=== PATIENT | male | born 1970 | race Caucasian/White ===

== ENCOUNTER 2023-02-15 17:27 | Emergency (ER) | payer MEDICAID ==
[~2023-02-15] VITALS: Ht 207 cm; Wt 132.7 kg
[2023-02-15 17:37] VITALS: BP 134/83
[2023-02-15] MEDS ORDERED: lurasidone 20mg tablet PO STA (18:18)
[2023-02-15] MEDS ORDERED: LURA80TA2 PO (18:21)
== END 2023-02-15 18:34 | disposition home or self-care (01) ==
LOC: ER 17:28
DX: F31.9 Bipolar disorder, unspecified (principal); Z76.0 Encounter for issue of repeat prescription; Z88.6 Allergy status to analgesic agent; Z79.899 Other long term (current) drug therapy; Z88.5 Allergy status to narcotic agent
CPT/HCPCS: 99281; 99283

== ENCOUNTER 2023-02-28 15:24 | Emergency (ER) | payer MEDICAID ==
[~2023-02-28] VITALS: Ht 175.3 cm; Wt 132.0 kg
[~2023-02-28 15:24] MED LIST: LURA80TA2 PO
[2023-02-28 15:49] VITALS: BP 129/91
[2023-02-28] MEDS ORDERED: BUSP10TA11 PO (15:56)
== END 2023-02-28 16:53 | disposition home or self-care (01) ==
LOC: ER 15:25
DX: F41.9 Anxiety disorder, unspecified (principal); Z76.0 Encounter for issue of repeat prescription
CPT/HCPCS: 99281

== ENCOUNTER 2025-03-19 06:39 | Emergency (ER) | payer MEDICAID ==
[~2025-03-19] VITALS: Ht 175.3 cm; Wt 125.0 kg
[2025-03-19 06:48] VITALS: TEMP 97.6
[2025-03-19 07:44] LABS: BASOPHILS % (AUTO) 0.2 % (0-1); EOSINOPHILS % (AUTO) 0.1 % (0-6); HEMATOCRIT 48.4 % (42.0-52.0); HEMOGLOBIN 17.2 g/dl (14.0-17.9); LYMPHOCYTES # (AUTO) 1.7 X10'3 (1.1-4.8); LYMPHOCYTES % (AUTO) 17.3 % (21-51); MEAN CORPUSCULAR HEMOGLOBIN 31.3 PG (27.0-31.0); MEAN CORPUSCULAR HGB CONC 35.6 g/dL (33.0-36.5); MEAN PLATELET VOLUME 7.2 FL (7.4-10.4); MONOCYTES # (AUTO) 0.7 X10'3 (0-0.9); MONOCYTES % (AUTO) 7.6 % (2-12); NEUTROPHILS # (AUTO) 7.2 X10'3 (1.8-7.7); NEUTROPHILS % (AUTO) 74.8 % (42-75); PLATELET COUNT 215 X10'3 (140-440); RED CELL DISTRIBUTION WIDTH 14.1 % (11.5-14.5); WHITE BLOOD COUNT 9.6 X10'3 (4.5-11.0)
[2025-03-19 08:10] LABS: ALANINE AMINOTRANSFERASE 38 U/L (12-78); ALBUMIN 4.7 G/DL (3.4-5.0); ALBUMIN/GLOBULIN RATIO 1.2 (1.1-1.5); ALKALINE PHOSPHATASE 81 IU/L (46-116); AMYLASE 24 U/L (25-115); ANION GAP 15 (8-16); ASPARTATE AMINO TRANSFERASE 30 U/L (10-37); BILIRUBIN,TOTAL 1.3 MG/DL (0.1-1.0); BLOOD UREA NITROGEN 12 MG/DL (7-18); BUN/CREATININE RATIO 15.2 (10.0-20.0); CALCIUM 9.7 MG/DL (8.5-10.1); CHLORIDE 100 MMOL/L (99-107); CREATININE 0.79 MG/DL (0.60-1.10); GLUCOSE 164 MG/DL (70-104); LIPASE 18 U/L (16-77); POTASSIUM 3.8 MMOL/L (3.5-5.1); SODIUM 138 MMOL/L (135-145); TOTAL CARBON DIOXIDE 23.4 MMOL/L (24-32); TOTAL PROTEIN 8.5 G/DL (6.4-8.2); eCRCL 107 ML/MIN; eGFR > 90 ML/MIN
[2025-03-19 08:28] LABS: BILIRUBIN,URINE NEGATIVE (Neg); CLARITY,URINE CLEAR (Clear); COLOR,URINE YELLOW (Yellow); GLUCOSE, URINE >=1000 mg/dl (Neg); KETONES,URINE TRACE mg/dl (Neg); LEUKOCYTE ESTERASE ,URINE NEGATIVE (Neg); NITRITES, URINE NEGATIVE (Neg); OCCULT BLOOD,URINE NEGATIVE (Neg); PROTEIN,URINE NEGATIVE (Neg); UROBILINOGEN,URINE 0.2 E.U/dL (0.2-1.0)
[2025-03-19 08:30] LABS: UA COLLECTION TYPE CLN CATCH MIDSTREAM
[2025-03-19 08:43] LABS: BACTERIA,URINE FEW /HPF (Neg); MUCUS STRANDS NONE SEEN /LPF (Neg); RBC,URINE 0-2 /HPF (0-2); SQUAMOUS EPITHELIAL CELL,UR NONE SEEN /LPF (FEW); WBC,URINE 0-4 /HPF (0-4)
--- NOTE | 2025-03-19 10:27 | Physician Documentation ---
History of Present Illness Chief Complaint: Abdominal Pain Stated Complaint: ABD PAIN Time Seen by MD: 09:07 OK to notify your PCP?: Yes Primary [facility] Source: patient, RN/, RN notes reviewed, old records Mode of Arrival: POV Exam Limitations: no limitations HPI 54 year old male presents to the emergency department complaining of abdominal pain with an onset of three days and states it happened last week as well. He states that he has been experiencing 6/10 abdominal pain with excessive gas and burping. Additionally he complains of diarrhea stating he has had it three times since arriving to the emergency department. He also complains of frequent urination. Of note patient was just recently diagnosed with diabetes and he does not know his glucose level. Patient denies any other associated symptoms at this time. Patient denies any other alleviating or exacerbating factors Medication Reconciliation Allergies: Coded Allergies: hydromorphone (Verified Allergy, Intermediate, RASH, 03/19/25) acetaminophen (Unverified Allergy, Unknown, 03/19/25) Scheduled Lurasidone HCl (Latuda), 1 TAB PO HS Metronidazole* (Flagyl*), 1 TAB PO Q8H Past Medical History Past Medical History: GERD, *PSYCH*, Anxiety, Bipolar, Depression Past Surgical History: noncontributory, cholecystectomy Alcohol Use: None Lives with: Spouse Lives In: Home Review of Systems All Other Systems at this time: Reviewed and Negative ROS As stated above in the HPI, otherwise all systems are reviewed and negative. Physical Exam Vital Signs: RN Vital Signs have been reviewed: Yes, Temperature: 97.6, Source: Temporal, Heart Rate: 102, Respiratory Rate: 18, BP: 158/92, Pulse Oximetry: 93, Weight: 125.050 Pulse Oximetry Reflects: adequate oxygenation Physical Exam General: The patient is well developed, well nourished, nontoxic appearing and is in no acute distress. Skin: [place], warm and dry with no rashes. HEENT: Head was normocephalic and atraumatic. Eyes - pupils equal, round, reactive to light and accommodation. Extraocular movements were intact. Conjunctivae were nonicteric. Ears - bilateral tympanic membranes were normal. The mouth and oropharynx were clear with moist mucous membranes. There were no pharyngeal exudates or erythema. Neck: Supple and nontender. There was no jugular venous distention, lymp hadenopathy, thyromegaly or masses. Chest: Clear to auscultation bilaterally without wheezes, rales or rhonchi. No accessory muscle use. No dullness to percussion. Heart: Rate regular and rhythmic. S1, S2. No murmurs. Palpation of the chest wall was normal. No rubs or thrills. Abdomen: Diffuse abdominal tenderness with distension and foul smelling stools. Positive bowel sounds. No guarding or rebound. No hepatosplenomegaly or palpable masses. Extremities: No cyanosis, clubbing or edema. The patient moves all extremities. Pulses were equal and symmetric. Neurologic: Cranial nerves II-XII were intact. Sensation was intact to light touch throughout. Motor strength was 5/5 in all four extremities. Deep tendon reflexes were intact in both upper and lower extremities. Psychologic: The patient was oriented to person, place and time. The patient demonstrated appropriate judgement and insight. Progress Results/Orders Reviewed/noted all lab results: Yes Results/Orders Completed Orders - KAUSHIK ALVAREZ MD Cbc/Diff (03/19/25 07:22) Amylase (03/19/25 07:22) Lipase (03/19/25 07:22) CMP (03/19/25 07:22) Ua W/Microscopic, Cult If Ind (03/19/25 07:36) Vital Signs 03/19/25 03/19/25 06:48 09:14 Temp 97.6 Pulse 102 Resp 18 B/P (MAP) 158/92 Pulse Ox 93 Laboratory Tests Test 03/19/25 07:33 03/19/25 07:36 White Blood Count 9.6 Red Blood Count 5.50 Hemoglobin 17.2 Hematocrit 48.4 Mean Corpuscular Volume 88.0 Mean Corpuscular Hemoglobin 31.3 H Mean Corpuscular Hemoglobin Concent 35.6 Red Cell Distribution Width 14.1 Platelet Count 215 Mean Platelet Volume 7.2 L Neutrophils (%) (Auto) 74.8 Lymphocytes (%) (Auto) 17.3 L Monocytes (%) (Auto) 7.6 Eosinophils (%) (Auto) 0.1 Basophils (%) (Auto) 0.2 Neutrophils # (Auto) 7.2 Lymphocytes # (Auto) 1.7 Monocytes # (Auto) 0.7 Eosinophils # (Auto) 0.0 Basophils # (Auto) 0.0 CBC Comment Sodium Level 138 Potassium Level 3.8 Chloride Level 100 Carbon Dioxide Level 23.4 L Anion Gap 15 Blood Urea Nitrogen 12 Creatinine 0.79 Estimated GFR/1.73 m2 > 90 BUN/Creatinine Ratio 15.2 Glucose Level 164 H Calcium Level 9.7 Total Bilirubin 1.3 H Aspartate Amino Transf (AST/SGOT) 30 Alanine Aminotransferase (ALT/SGPT) 38 Alkaline Phosphatase 81 Total Protein 8.5 H Albumin 4.7 Globulin 3.8 Albumin/Globulin Ratio 1.2 Amylase Level 24 L Lipase 18 Chemistry Comments Urine Specimen Description Cln catch midstream Urine Color Yellow Urine Clarity Clear Urine pH 7.0 Urine Specific [place] <=1.005 Urine Protein Negative Urine Glucose (UA) >=1000 H Urine Ketones Trace H Urine Occult Blood Negative Urine Nitrite Negative Urine Bilirubin Negative Urine Urobilinogen 0.2 Urine Leukocyte Esterase Negative Urine RBC 0-2 Urine WBC 0-4 Urine Squamous Epithelial Cells None seen Urine Bacteria Few Urine Mucus None seen Urine Culture Indicated Not ind Volume Urine Centrifuged 10 ml Urine Comment Re-Evaluation Re-Evaluation : Re-Evaluation: Improved Progress Patient was seen and examined. Patient is given reassurance. Patient was having foul-smelling belching as well as foul-smelling diarrhea. No fevers or chills. Patient has been having symptoms intermittently. Patient has not been on any recent antibiotics so no concern for C diff colitis also WBCs within normal limits also goes against any colitis of sorts. No anemia with a hemoglobin of 17 hematocrit 48. Normal platelets. Chemistries within normal limits slight CO2 depression at 23.4 for mild acidosis. Bilirubin also slightly elevated 1.3 but the patient had no abdominal pains normal LFTs urinalysis was only significant for glucosuria. Patient after a negative CAT scan was then given metronidazole one dose of Cipro. Patient was then prescribed a short dose of Flagyl. Patient was then given reassurance and discharged home. There was no signs of bowel obstruction patient did have a prior abdominal surgery which was a bit concerning however his workup is normal at this time and was discharged home with supportive care measures. Continuous quality assurance monitor final interpretation initially showed sinus tachycardia heart rate 100s, abnormal, my interpretation after hydration patient's heart rate is now in the 80s, normal, my interpretation. Pulse oximetry monitor interpretation shows normal oxygenation 95% room air, normal, my interpretation. EKG/XRAY/CT/US/VASC/MRI CT : Impression CT ABDOMEN AND PELVIS WITHOUT CONTRAST CLINICAL HISTORY: ABD PAIN TECHNIQUE: Multiple contiguous axial images of the abdomen and pelvis without intravenous contrast. The images were reformatted degenerate coronal and sagittal reconstructions. All CT scans at this medical facility are performed using dose modulation techniques as appropriate to a performed exam including the following:Automated exposure control was utilized; adjustment of the MA and/or KV according to patient size; and use of iterative reconstruction technique. Radiation Dose Information: CT Dose: CTDI volume is 36 mGy. Dose-length product is 2110 mGy*cm Comparison: None FINDINGS: Evaluation of the abdomen and pelvis is limited without intravenous contrast. There is no evidence of nephrolithiasis or hydronephrosis. There is a 3.0 cm cyst in the midpole of the right kidney. The gallbladder is surgically absent. The liver, pancreas, adrenal glands, and spleen appear within normal limits. There is no gross evidence of abdominal lymphadenopathy. There is no free fluid or free air. The stomach grossly appears unremarkable. The small and large bowel loops demonstrate normal caliber and distribution. A normal appearing appendix is seen in the right lower quadrant abdomen. The abdominal aorta and IVC appear within normal limits. The bladder appears unremarkable for the degree of distention. Pelvic organ appears within normal limits. There is no gross evidence of a pelvic mass. There is no free fluid collection. Lung bases are clear. There is no acute osseous abnormality. IMPRESSION: 1. There is no acute process in the abdomen and pelvis. HS:Y Electronically Signed by:TEO RAMIREZ MD Date & Time: 03/19/25 1134 Medical Decision Making Additional info obtained from: old records Differential Dx:Considerations: Include: Angina/DE, Appendicitis, Bowel obst ruction, Cholangitis, Cholelithasis, Constipation, Diverticular disease, Esophageal rupture, Esophagitis, Gastritis/PUD, Gastroenteritis, GI hemorrhage, Hernia, Hepatitis, Inflammatory BD, Ischemic bowel, Urinary obstruction, Urinary tract infection, Urolithiasis, Other Departure Time of Disposition: 14:17 Disposition: 01 HOME / SELF CARE / HOMELESS Impression: Primary Impression: Abdominal pain Qualified Codes: R10.84 - Generalized abdominal pain Condition: Stable Discharge Instructions: Abdominal Pain (Nonspecific) Referrals: NO PRIMARY CARE PROVIDER (PCP) Prescriptions Metronidazole* (Flagyl*) 500 Mg Tablet 1 TAB PO Q8H for 7 Days, #21 TAB Prov: KAUSHIK ALVAREZ MD 03/19/25 Education Educated: Patient Educated regarding: diagnosis, treatment, prognosis, need for follow up Signature Scribe Signature: Scribed for Kaushik Alvarez MD by Mya Weir . 03/19/25 10:52 Attestation: The note accurately reflects work and decisions made by me.Kaushik Alvarez MD 03/19/25 10:26 KAUSHIK ALVAREZ MD March 19, 2025 10:27 MYA ESTRADA March 19, 2025 10:52
--- NOTE | 2025-03-19 11:36 | RADIOLOGY REPORT ---
CT ABDOMEN AND PELVIS WITHOUT CONTRAST CLINICAL HISTORY: ABD PAIN TECHNIQUE: Multiple contiguous axial images of the abdomen and pelvis without intravenous contrast. T he images were reformatted degenerate coronal and sagittal reconstructions. All CT scans at this medical facility are performed using dose modulation techniques as appropriate t o a performed exam including the following:Automated exposure control was utilized; adjustment of the MA and/or KV according to patient size; and use of iterative reconstruction technique. Radiation Dose Information: CT Dose: CTDI volume is 36 mGy. Dose-length product is 2110 mGy*cm Comparison: None FINDINGS: Evaluation of the abdomen and pelvis is limited without intravenous contrast. There is no evidence of nephrolithiasis or hydronephrosis. There is a 3.0 cm cyst in the midpole of t he right kidney. The gallbladder is surgically absent. The liver, pancreas, adrenal glands, and spleen appear with in normal limits. There is no gross evidence of abdominal lymphadenopathy. There is no free fluid or free air. The stomach grossly appears unremarkable. The small and large bowel loops demonstrate normal caliber and distribution. A normal appearing appendix is seen in the right lower quadrant abdomen. The abdominal aorta and IVC appear within normal limits. The bladder appears unremarkable for the degree of distention. Pelvic organ appears within normal ga its. There is no gross evidence of a pelvic mass. There is no free fluid collection. Lung bases are clear. There is no acute osseous abnormality. IMPRESSION: 1. There is no acute process in the abdomen and pelvis. HS:Y
[2025-03-19] MEDS ORDERED: METR-159 PO (14:21)
[2025-03-19] MEDS: metroNIDAZOLE 500mg tablet PO ONE (14:46)
[2025-03-19] MEDS: ciprofloxacin 250mg tablet PO ONE (14:48)
[2025-03-19 15:04] VITALS: BP 130/94; PULSE 88; RESP 18; O2SAT 96
== END 2025-03-19 15:06 | disposition home or self-care (01) ==
LOC: ER 06:40
DX: R10.84 Generalized abdominal pain (principal); K21.9 Gastro-esophageal reflux disease without esophagitis; F41.9 Anxiety disorder, unspecified; F31.9 Bipolar disorder, unspecified; E11.9 Type 2 diabetes mellitus without complications; Z88.5 Allergy status to narcotic agent; Z90.49 Acquired absence of other specified parts of digestive tract
CPT/HCPCS: 74176; 80053; 81001; 82150; 83690; 85025; 99284

== ENCOUNTER 2025-05-29 15:24 | Emergency (ER) | payer MEDICAID ==
[~2025-05-29] VITALS: Ht 175.3 cm; Wt 114.7 kg
--- NOTE | 2025-05-29 15:46 | Physician Documentation ---
History of Present Illness Chief Complaint: Abdominal Pain Stated Complaint: ABDOMINAL PAIN Primary Medical Doctor: ZAY CHICAS [facility] HPI Presents to the emergency department for evaluation of upper quadrant abd pain x4 days.with excessive foul smelling gas. Patient denies fevers reports nausea and vomiting. She reports that he had his gallbladder removed in his appendix removed several years ago. He reports that he was seen here recently for the same problem and went through a thorough evaluation at that time. Patient states he eats primarily a eggs meat and potatoes. He also enjoys [place] Day of Onset: May 29, 2025 Medication Reconciliation Allergies: Coded Allergies: hydromorphone (Verified Allergy, Intermediate, RASH, 05/29/25) acetaminophen (Unverified Allergy, Unknown, 05/29/25) Scheduled Lurasidone HCl (Latuda), 1 TAB PO HS Past Medical History Past Medical History: GERD, *PSYCH*, Anxiety, Bipolar, Depression Past Surgical History: noncontributory, cholecystectomy Alcohol Use: None Lives with: Spouse Lives In: Home Review of Systems All Other Systems at this time: Reviewed and Negative ROS As stated above in the HPI, otherwise all systems are reviewed and negative. Physical Exam Vital Signs: Temperature: 97.4, Source: Temporal, Heart Rate: 92, Respiratory Rate: 15, BP: 109/76, Pulse Oximetry: 97, Weight: 114.650 Oxygen Flow Rate: 0 Physical Exam General: Alert, no apparent distress. Respiratory: Lungs clear, no respiratory distress. Cardiovascular: Regular rate and rhythm, no murmurs. Gastrointestinal: Soft, tender midepigastric region, nondistended. Bowels sounds present. Neurologic: Oriented x4. Psychiatric: Normal mood and affect. Skin: Normal color, warm and dry. No edema, no ecchymosis. Progress Results/Orders Results/Orders Vital Signs 05/29/25 15:35 Temp 97.4 Pulse 92 Resp 15 B/P (MAP) 109/76 Pulse Ox 97 O2 Flow Rate 0 Medical Decision Making Findings Patient's CT came back unremarkable as is his laboratory values. I discussed this with the patient in his . I am highly suspicious that his symptoms are GI related and I explained that they need to try avoiding sole for producing foods Differential Dx:Considerations: Include: AAA, Angina/OR, Aortic dissection, Appendicitis, Bowel obstruction, Cholangitis, Cholelithasis, Constipation, Diverticular disease, Esophageal rupture, Esophagitis, Gastritis/PUD, Gastroenteritis, GI hemorrhage, Hernia, Hepatitis, Inflammatory BD, Ischemic bowel, Pancreatitis, Porphyria, Testicular torsion, Trauma, intraabdominal, Urinary obstruction, Urinary tract infection, Urolithiasis, Other Departure Disposition: HOME / SELF CARE / HOMELESS Impression: Primary Impression: Abdominal pain Condition: Stable Discharge Instructions: Abdominal Pain (Nonspecific) Additional Instructions: As discussed believe that most of your problem revolves around your diet. Avoid sulphur producing foods. Referrals: NO PRIMARY CARE PROVIDER (PCP) Signature Scribe Signature: f Attestation: Scribed for Quan Auguste Nitriles Lab Technician by Quan Moreau NP . 05/29/25 19:14 SUSIE PARKINSON WILL CALL CLERK May 29, 2025 15:46 QUAN AUGUSTE NP May 29, 2025 18:02
[2025-05-29 16:31] LABS: CREATININE 0.73 MG/DL (0.60-1.10); TOTAL CARBON DIOXIDE 25.0 MMOL/L (24-32); eCRCL 116 ML/MIN; eGFR > 90 ML/MIN
[2025-05-29 16:47] LABS: MEAN PLATELET VOLUME 7.3 FL (7.4-10.4)
[2025-05-29 16:51] LABS: LEUKOCYTE ESTERASE ,URINE NEGATIVE (Neg); NITRITES, URINE NEGATIVE (Neg); OCCULT BLOOD,URINE NEGATIVE (Neg)
[2025-05-29 16:52] LABS: UA COLLECTION TYPE CLN CATCH MIDSTREAM
[2025-05-29 16:57] LABS: SQUAMOUS EPITHELIAL CELL,UR FEW /LPF (FEW)
[2025-05-29 17:07] LABS: RED CELL DISTRIBUTION WIDTH 13.8 % (11.5-14.5)
--- NOTE | 2025-05-29 18:32 | RADIOLOGY REPORT ---
Exam: CT CT ABDOMEN PELVIS History: abdominal pain Comparison Study: CT CT ABDOMEN PELVIS on DOS: 03/19/25 TECHNIQUE: Multidetector CT of the abdomen and pelvis was performed from lung bases to pubic symphysi s. Imaging was performed without IV contrast. Axial, coronal, and sagittal multiplanar reformats were obtained from the axial data set by the technologist. RADIATION DOSE: DLP 1815.92 mGy.cm; CTDI vol 33.43 mGy. Findings: Lungs: The lung bases are clear. Heart: No cardiomegaly or pericardial effusion. Liver: Unremarkable. Gallbladder: Cholecystectomy. Spleen: Unremarkable Pancreas: Unremarkable Adrenals: Unremarkable Kidneys: Right renal cyst. GI tract: Slightly prominent appendix measuring 0.8 cm in diameter. No periappendiceal inflammatory c hanges. : Unremarkable. Vasculature: Mild aortoiliac atherosclerosis. Lymphadenopathy: Absent Peritoneum: No ascites Musculoskeletal: Mild multilevel degenerative changes of the thoracolumbar spine. Mild loss of centra l vertebral body height of L2. Soft tissues: Unremarkable Impression: 1. No acute abdominopelvic abnormalities. 2. Slightly prominent appendix without definite periappendiceal inflammatory changes. Cannot entirel y exclude developing appendicitis.
[2025-05-29 19:06] VITALS: TEMP 98.4
[2025-05-29 19:23] VITALS: BP 118/73; PULSE 89; RESP 15; O2SAT 97
== END 2025-05-29 19:25 | disposition home or self-care (01) ==
LOC: ER 15:25
DX: R10.13 Epigastric pain (principal); F31.9 Bipolar disorder, unspecified; F41.9 Anxiety disorder, unspecified; K21.9 Gastro-esophageal reflux disease without esophagitis; Z88.5 Allergy status to narcotic agent; Z90.49 Acquired absence of other specified parts of digestive tract; Z88.6 Allergy status to analgesic agent; Z79.899 Other long term (current) drug therapy
CPT/HCPCS: 74176; 80053; 81001; 83690; 85025; 99285